=== PATIENT | male | born 2000 | race Caucasian/White ===

== ENCOUNTER 2023-05-27 15:40 | Emergency (ER) | payer OTHER, SELFPAY ==
[2023-05-27 15:41] VITALS: BP 139/93; PULSE 97; RESP 18; TEMP 36.6; O2SAT 97; BMI 23.5
--- NOTE | 2023-05-27 15:55 | RAD_ITS ---
INDICATION: PAIN EXAMINATION/TECHNIQUE: X-RAY - RIGHT XR Shoulder Min 2 Views 4 VIEWS COMPARISON: None. FINDINGS: SOFT TISSUES: No soft tissue swelling or gas. No radiopaque foreign body. BONES/JOINTS: No acute fracture. Joint spaces anatomically aligned. RAD/Shoulder min 2 Views IMPRESSION: Unremarkable study. Electronically Signed: Bob Mcbride MD at 16:12 EDT ,
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
== END 2023-05-27 16:35 | disposition home or self-care (01) ==
LOC: ED 16:27
PROVIDERS: Emergency Provider Emergency Medicine; Visit Provider Emergency Medicine
DX: S40.011A Contusion of right shoulder, initial encounter (principal); V49.9XXA Car occupant (driver) (passenger) injured in unspecified traffic accident, initial encounter
CPT/HCPCS: 73030; 99283

== ENCOUNTER 2023-09-15 17:43 | Emergency (ER) | payer OTHER, SELFPAY ==
[2023-09-15 17:44] VITALS: BP 125/79; PULSE 93; RESP 18; TEMP 37.1; O2SAT 98
--- NOTE | 2023-09-15 18:04 | CT_ITS ---
INDICATION: trauma EXAMINATION: CT CERVICAL SPINE - CT Spine Cervical W/O Contrast Injection TECHNIQUE: Helically acquired images were obtained of the cervical spine. 2D reformatted images were reviewed. A radiation dose optimization technique was used for this scan. IV Contrast dosage and agent: None. RADIATION DOSAGE (If Supplied By Facility): CTDIvol = ( 19.52 ) mGy, DLP = ( 489.34 ) mGycm COMPARISON: No relevant prior comparison study available FINDINGS: VERTEBRAE: No fracture or traumatic subluxation. No discrete lytic or blastic abnormality. Normal alignment. Normal craniocervical junction and cervicothoracic junction. DISCS and SPINAL CANAL: Disc heights are preserved. No critical stenosis. NECK SOFT TISSUES: No prevertebral soft tissue swelling. There is no cervical adenopathy. LUNG APICES: Clear. CT/Spine Cervical without Contras IMPRESSION: No evidence of acute cervical spinal fracture or spondylolisthesis. Electronically Signed: Dony Washington MD at 18:42 EDT ,
--- NOTE | 2023-09-15 18:04 | CT_ITS ---
INDICATION: trauma EXAMINATION: CT BRAIN - CT Head or Brain W/O Contrast Injection TECHNIQUE: Multiple axial images were obtained of the head without intravenous contrast. A radiation dose optimization technique was used for this scan. IV Contrast dosage and agent: None. RADIATION DOSAGE (If Supplied By Facility): CTDIvol = ( 44.99 ) mGy, DLP = ( 812.98 ) mGycm COMPARISON: No relevant prior comparison study available FINDINGS: BRAIN PARENCHYMA: No intra- or extra-axial hemorrhage. No evidence of acute infarct. No intracranial mass or mass effect. There is preservation of the august/white matter interface. Posterior fossa structures are unremarkable. No parenchymal abnormality. CSF SPACES: No cerebral volume loss. No hydrocephalus. Basal cisterns are patent. CALVARIUM, SKULL BASE, PARANASAL SINUSES AND MASTOID AIR CELLS: There is a mildly impacted fracture of the anterior wall of left maxillary sinus and a nondisplaced fracture of the posterior wall of the left maxillary sinus with associated blood products in the left maxillary sinus. Mucosal thickening and retention cyst present in the right maxillary sinus. Scattered secretions within the ethmoid air cells. Orbits and globes unremarkable. Calvarium and skull base intact. ORBITS: Both globes, extraocular muscles, optic nerves and retrobulbar fat appear unremarkable. CT/Brain/Head without Contrast IMPRESSION: No acute intracranial hemorrhage or extra-axial collection. Fractures of the anterior and posterior rush of left maxillary sinus as described, with accompanying hemosinus. The left orbit appears uninvolved. Electronically Signed: Dony Washington MD at 18:41 EDT ,
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
--- NOTE | 2023-09-15 18:20 | RAD_ITS ---
INDICATION: trauma EXAMINATION/TECHNIQUE: X-RAY - LEFT XR Knee Complete 4 Views or More 4 VIEWS COMPARISON: No relevant prior comparison study available FINDINGS: SOFT TISSUES: No soft tissue swelling or gas. No radiopaque foreign body. BONES/JOINTS: No acute fracture or subluxation.. Normal alignment. Preservation of the joint space.. No sclerotic or destructive changes observed. RAD/Knee 4 or More Views IMPRESSION: No fracture or malalignment. Electronically Signed: Dony Washington MD at 18:45 EDT ,
[2023-09-15] MEDS: Naproxen 500 MG Tablet PO (18:28)
[2023-09-15] MEDS: HYDROcodone Bitartrate/Apap 5/325 Tablet PO (18:28)
[2023-09-15 19:09] VITALS: BP 124/63; PULSE 72; RESP 16; O2SAT 99
[2023-09-15 19:11] VITALS: O2SAT 98
== END 2023-09-15 19:13 | disposition home or self-care (01) ==
PROVIDERS: Emergency Provider Emergency Medicine; Visit Provider Emergency Medicine
DX: S01.81XA Laceration without foreign body of other part of head, initial encounter (principal); S80.212A Abrasion, left knee, initial encounter; R51.9 Headache, unspecified; V81 Occupant of railway train or railway vehicle injured in transport accident; Y99.0 Civilian activity done for income or pay
CPT/HCPCS: 70450; 72125; 73564; 99283